=== PATIENT | female | born 1940 | race Caucasian/White ===

== ENCOUNTER → 2016-10-22 | Outpatient (CLI) | payer BC ==
[~2016-10-22] MED LIST: ACET-1325; ALBUAER2 INH; CALC600T9 PO; CHOL100010 PO; CYM/30 PO; EST5 PO; LISI-725 PO; LISI-787 PO; NSNN50 NAE; OFLO0.3S4 OPL; OMEP20CA9 PO; POTA-335 PO; PRED1SUS3; SIMV-151 PO; SYMIN160 PO; VALA1TAB PO
== END | disposition home or self-care (01) ==
LOC: C.MAMM 15:34
PROVIDERS: ATTEND Internal Medicine
DX: M85.88 Other specified disorders of bone density and structure, other site (principal)

== ENCOUNTER → 2016-11-03 | Outpatient (CLI) | payer BC ==
[2016-11-03 19:23] LABS: BASO % 0.2 %; BASO ABS # 0.02 K/uL (0-0.2); COMPLETE YES; EOS % 4.3 %; HEMATOCRIT 37.6 % (37-47); IG% 0.2 %; LYMPH ABS # 1.62 K/uL (1.2-3.4); MEAN CELL VOLUME 90.4 fL (80-100); MEAN CORPUSCULAR HEMOGLOBIN 29.8 pg (25-34); MEAN PLATELET VOLUME 9.2 fL (7.4-10.4); MONO % 8.8 %; NEUT % 67.5 %; PLATELET COUNT 291 K/uL (130-400); RED BLOOD COUNT 4.16 M/uL (4.2-5.4); WHITE BLOOD COUNT 8.53 K/uL (4.8-10.8)
[2016-11-03 19:41] LABS: BLOOD UREA NITROGEN 24 mg/dl (7-18); CREATININE 0.91 mg/dl (0.60-1.20); GLUCOSE 102 mg/dl (70-99)
[2016-11-03 19:42] LABS: ALT/SGPT 21 U/L (12-78); BUN/CREATININE RATIO 26.6 (10-20); CALCIUM 9.8 mg/dl (8.5-10.1); CARBON DIOXIDE 30 mmol/L (21-32); CHLORIDE 104 mmol/L (98-107); CHOLESTEROL 190 mg/dl (0-200); POTASSIUM 4.3 mmol/L (3.5-5.1); SODIUM 140 mmol/L (136-145)
[2016-11-03 19:52] LABS: ALB/GLOB RATIO 0.9 (0.9-2); ALKALINE PHOSPHATASE 114 U/L (45-117); AST/SGOT 16 U/L (15-37); CHOLESTEROL/HDL RATIO 2.6; FERRITIN 28.8 ng/ml (8.0-388.0); HDL CHOLESTEROL 73 mg/dl; LDL CHOLESTEROL CALCULATED 93 mg/dl; TRIGLYCERIDES 122 mg/dl (0-150); VERY LOW DENSITY LIPOPROT CALC 24 mg/dl
== END | disposition home or self-care (01) ==
LOC: C.LAB 18:41
PROVIDERS: ATTEND Internal Medicine
DX: G25.81 Restless legs syndrome (principal)

== ENCOUNTER → 2017-02-04 | Outpatient (CLI) | payer BC ==
--- NOTE | 2017-02-05 07:59 | MAMMOGRAPHY REPORT ---
BILATERAL DIGITAL SCREENING MAMMOGRAM WITH CAD: 02/04/2017 CLINICAL HISTORY: Routine screening. Patient has no complaints. TECHNIQUE: Current study was also evaluated with a Computer Aided Detection (CAD) system. Bilateral CC and MLO views were obtained. COMPARISON: Comparison is made to exams dated: 07/17/2015 mammogram, 03/26/2014 mammogram, 03/24/2013 ma mmogram, 03/09/2012 mammogram, 02/26/2011 mammogram, and 02/20/2010 mammogram - [facility] ter. BREAST COMPOSITION: There are scattered areas of fibroglandular density in both breasts. FINDINGS: No suspicious masses, calcifications, or areas of architectural distortion are noted in ei ther breast. There has been no significant interval change compared to prior exams. IMPRESSION: ACR BI-RADS CATEGORY 1: NEGATIVE There is no mammographic evidence of malignancy. A 1 year screening mammogram is recommended. The pa tient will receive written notification of the results. Approximately 10% of breast cancers are not detected with mammography. A negative mammographic report should not delay biopsy if a clinically suggestive mass is present. Brenna Dunbar M.D. /:02/04/2017 15:46:56 Farm Equipment Engine Mechanic: Janee Adams, [facility] letter sent: Normal 1/2 BI-RADS Code: ACR BI-RADS Category 1: Negative
== END | disposition home or self-care (01) ==
LOC: C.MAMM 15:19
PROVIDERS: ATTEND Obstetrics & Gynecology
DX: Z12.31 Encounter for screening mammogram for malignant neoplasm of breast (principal)

== ENCOUNTER → 2017-05-12 | Outpatient (CLI) | payer BC ==
[2017-05-12 13:15] LABS: BASO % 0.6 %; BASO ABS # 0.04 K/uL (0-0.2); COMPLETE YES; EOS % 4.5 %; HEMATOCRIT 40.5 % (37-47); IG% 0.3 %; LYMPH % 17.5 %; LYMPH ABS # 1.24 K/uL (1.2-3.4); MEAN CELL VOLUME 91.2 fL (80-100); MEAN CORPUSCULAR HEMOGLOBIN 29.5 pg (25-34); MEAN CORPUSCULAR HGB CONC 32.3 g/dl (32-36); MEAN PLATELET VOLUME 9.2 fL (7.4-10.4); MONO % 7.1 %; PLATELET COUNT 303 K/uL (130-400); RED BLOOD COUNT 4.44 M/uL (4.2-5.4); WHITE BLOOD COUNT 7.09 K/uL (4.8-10.8)
[2017-05-12 13:50] LABS: BLOOD UREA NITROGEN 20 mg/dl (7-18); BUN/CREATININE RATIO 30.2 (10-20); CALCIUM 9.1 mg/dl (8.5-10.1); CARBON DIOXIDE 30 mmol/L (21-32); CHLORIDE 105 mmol/L (98-107); CREATININE 0.66 mg/dl (0.60-1.20); GLUCOSE 103 mg/dl (70-99); POTASSIUM 4.1 mmol/L (3.5-5.1); SODIUM 141 mmol/L (136-145)
[2017-05-12 14:01] LABS: CHOLESTEROL 189 mg/dl (0-200); CHOLESTEROL/HDL RATIO 2.4; FERRITIN 26.1 ng/ml (8.0-388.0); HDL CHOLESTEROL 80 mg/dl; LDL CHOLESTEROL CALCULATED 91 mg/dl; TRIGLYCERIDES 89 mg/dl (0-150); VERY LOW DENSITY LIPOPROT CALC 18 mg/dl
== END | disposition home or self-care (01) ==
LOC: C.LAB 11:45
PROVIDERS: ATTEND Internal Medicine
DX: Z00.00 Encounter for general adult medical examination without abnormal findings (principal); I10 Essential (primary) hypertension; E78.5 Hyperlipidemia, unspecified; E61.8 Deficiency of other specified nutrient elements

== ENCOUNTER → 2017-11-10 | Outpatient (CLI) | payer BC ==
[2017-11-10 16:48] LABS: HEMOGLOBIN A1C 5.8 % (4.5-5.6)
[2017-11-10 17:21] LABS: ALBUMIN 3.7 gm/dl (3.4-5.0); ALT/SGPT 14 U/L (12-78); AST/SGOT 13 U/L (15-37); BLOOD UREA NITROGEN 26 mg/dl (7-18); CARBON DIOXIDE 32 mmol/L (21-32); CREATININE 0.74 mg/dl (0.60-1.20); GLUCOSE 99 mg/dl (70-99); POTASSIUM 3.7 mmol/L (3.5-5.1); SODIUM 135 mmol/L (136-145)
[2017-11-10 17:23] LABS: ALKALINE PHOSPHATASE 109 U/L (45-117); CHOLESTEROL 203 mg/dl (0-200); LDL CHOLESTEROL CALCULATED 105 mg/dl
[2017-11-10 17:30] LABS: CALCIUM 10.1 mg/dl (8.5-10.1)
== END | disposition home or self-care (01) ==
LOC: C.LAB 16:11
PROVIDERS: ATTEND Internal Medicine
DX: I10 Essential (primary) hypertension (principal); R73.03 Prediabetes; E78.5 Hyperlipidemia, unspecified

== ENCOUNTER → 2017-11-24 | Outpatient (CLI) | payer BC | END | disposition home or self-care (01) | LOC: C.LABBC 12:14 | PROVIDERS: ATTEND Internal Medicine | DX: E55.9 Vitamin D deficiency, unspecified (principal) ==

== ENCOUNTER → 2017-12-24 | Outpatient (CLI) | payer BC ==
[~2017-12-24] MED LIST changes: -ACET-1325; -ALBUAER2 INH; +ATROPINE SULFATE 0.1 MG/ML 5ML SYR ONE; +CHOL1000 PO; -CHOL100010 PO; +CLR10 PO; -CYM/30 PO; +DOBUTamine HCL 12.5 MG/ML 20 ML VIAL ONE; +FLUO20CA35 PO; -LISI-725 PO; +METOPROLOL TARTRATE 1 MG/ML VIAL ONE; -NSNN50 NAE; -OFLO0.3S4 OPL; +PERFLUTREN LIPID MICROSPHERE (DEFINITY) IV ONE; -POTA-335 PO; +POTA10CA28 PO; -PRED1SUS3; +SLWMEC PO; -SYMIN160 PO; -VALA1TAB PO; +VALA500T60 PO
--- NOTE | 2017-12-24 13:21 | DOBUTAMINE ECHO ---
*NOTICE TO RECEIVING REPUBLICAN AGENCY This information is strictly Confidential and protected under [place] law. [place] law prohibits you from making any further disclosure of this information unless further disclosure is expressly permitted by the written consent of the person to whom it pertains or is authorized by law. A general authorization for the release of medical or other information is not sufficient for this purpose. Hospital accepts no responsibility if the information is made available to any other person, INCLUDING THE PATIENT. Interpretation Summary * Name: ADAMA CARCAMO Study Date: 12/24/2017 10:11 AM BP: 164/90 mmHg * Patient Location: [facility] HR: 67 * : 1940 (M/d/yyyy) Gender: Female Height: 50 in * Age: 77 yrs Ethnicity: CA Weight: 192 lb * Ordering Physician: Brisa Reyes * Referring Physician: Brisa Reyes * Performed By: Oralia Jolly RDCS * * Reason For Study: Pre Operative, Abnormal EKG * BSA: 1.6 m2 * -- Conclusions -- * Left ventricular systolic function is normal. * Grade I diastolic dysfunction, (abnormal relaxation pattern). * There is significant calcification of the posterior mitral annulus * Normal dobutamine echocardiogram without evidence of inducible ischemia. Procedure Details * DOBUTAMINE ECHO, CPT#94053 * ECHO COLOR FLOW, CPT #39234 * ECHO DOPPLER, CPT #[id number] * A contrast injection of Definity was performed to improve assessment of LV function. * Contrast was injected into an intravenous site in the left arm. * One vial of Definity ultrasound contrast was diluted in normal saline to a total volume of 10 ml. A total of '5' ml of solution was administered during imaging. * Lot # [id number] of Definity utilized for procedure. * Expiration date 1APR19. * The attending nurse who injected the contrast agent was Judy Ramos RN. Left Ventricular Findings with Stress * Normal dobutamine echocardiogram without evidence of inducible ischemia. Left Ventricle * The left ventricle is normal in size. * There is normal left ventricular wall thickness. * Ejection Fraction = 60-65%. * Left ventricular systolic function is normal. * Grade I diastolic dysfunction, (abnormal relaxation pattern). * The left ventricular wall motion is normal at rest. Right Ventricle * The right ventricle is normal in size and function. Atria * The left atrial size is normal. * Right atrial size is normal. Mitral Valve * There is significant calcification of the posterior mitral annulus * Significant mitral regurgitation is absent. Tricuspid Valve * The tricuspid valve is not well visualized, but is grossly normal. * Significant tricuspid regurgitation is absent. Aortic Valve * The aortic valve is normal in structure and function. * No hemodynamically significant valvular aortic stenosis. * There is no significant aortic regurgitation. Pulmonic Valve * The pulmonic valve is not well visualized. Great Vessels * The aortic root is normal size. Pericardium * There is no pericardial effusion. Stress Parameters * Normal sinus rhythm with incomplete right bundle branch block. Poor R-wave progression in precordial leads * Stress ECG: No ST changes. No arrhythmias. * Rest heart rate was '67' BPM. * Rest blood pressure was '164/90' * Maximum heart rate achieved was 133 bpm. * Maximum heart rate was 91 % of maximum age-predicted heart rate. * Maximum blood pressure was '174/86' * Maximum Dobutamine infusion rate was '40' mcg/kg/min. * Dobutamine infusion was terminated due to achieving target heart rate * A total of 5 mg of IV Metoprolol was administered to reverse Dobutamine-induced tachycardia. * The patient did not exhibit any symptoms during drug infusion. Left Ventricular Findings with Stress * Baseline EKG was normal There are no significant ST or T-wave changes during dobutamine infusion Baseline echocardiogram was normal There was good augmentation of all segments without development of wall motion abnormalities at peak dobutamine infusion There was normal hemodynamic response to dobutamine and atropine MMode 2D Measurements and Calculations IVSd 1.0 cm IVSs 1.4 cm LVIDd 4.6 cm LVIDs 2.2 cm LVPWd 1.0 cm LVPWs 1.6 cm IVS/LVPW 0.98 FS 52.0 % EDV(Teich) 98.6 ml ESV(Teich) 16.5 ml EF(Teich) 83.2 % EDV(cubed) 99.0 ml ESV(cubed) 10.9 ml EF(cubed) 89.0 % % IVS thick 40.0 % % LVPW thick 55.4 % LV mass(C)d 163.1 grams LV mass(C)dI 101.4 grams/m\S\2 LV mass(C)s 109.3 grams LV mass(C)sI 68.0 grams/m\S\2 SV(Teich) 82.1 ml SI(Teich) 51.1 ml/m\S\2 SV(cubed) 88.1 ml SI(cubed) 54.8 ml/m\S\2 Ao root diam 2.5 cm Ao root area 4.8 cm\S\2 ACS 1.8 cm LA dimension 3.4 cm LA/Ao 1.4 LVAd ap4 23.0 cm\S\2 LVLd ap4 6.7 cm EDV(MOD-sp4) 68.1 ml EDV(sp4-el) 67.1 ml LVAs ap4 14.3 cm\S\2 LVLs ap4 6.4 cm ESV(MOD-sp4) 28.9 ml ESV(sp4-el) 26.9 ml EF(MOD-sp4) 57.5 % EF(sp4-el) 59.9 % LVAd ap2 21.8 cm\S\2 LVLd ap2 6.8 cm EDV(MOD-sp2) 59.6 ml EDV(sp2-el) 59.9 ml LVAs ap2 11.0 cm\S\2 LVLs ap2 5.7 cm ESV(MOD-sp2) 18.5 ml ESV(sp2-el) 18.3 ml EF(MOD-sp2) 69.0 % EF(sp2-el) 69.5 % LVLd %diff 0.87 % EDV(MOD-bp) 64.9 ml LVLs %diff -13.50 % ESV(MOD-bp) 24.0 ml EF(MOD-bp) 63.0 % SV(MOD-sp4) 39.2 ml SI(MOD-sp4) 24.4 ml/m\S\2 SV(MOD-sp2) 41.1 ml SI(MOD-sp2) 25.6 ml/m\S\2 SV(MOD-bp) 40.9 ml SI(MOD-bp) 25.5 ml/m\S\2 SV(sp4-el) 40.2 ml SI(sp4-el) 25.0 ml/m\S\2 SV(sp2-el) 41.6 ml SI(sp2-el) 25.9 ml/m\S\2 Doppler Measurements and Calculations MV E max joshua 106.7 cm/sec MV A max joshua 120.8 cm/sec MV E/A 0.88 MV dec time 0.24 sec Ao V2 max 145.2 cm/sec Ao max PG 8.4 mmHg Ao max PG (full) 5.7 mmHg LV V1 max PG 2.8 mmHg LV V1 max 83.4 cm/sec PA V2 max 104.5 cm/sec PA max PG 4.4 mmHg
== END | disposition home or self-care (01) ==
LOC: C.CPL 09:15
PROVIDERS: ATTEND Physician Assistant Medical
DX: R94.31 Abnormal electrocardiogram [ECG] [EKG] (principal)

== ENCOUNTER 2017-12-28 08:46 | Inpatient (IN) | payer BC, OTHER ==
--- NOTE | 2017-12-03 09:24 | HISTORY & PHYSICAL EXAMINATION ---
DATE OF ADMISSION: 12/03/2017 CHIEF COMPLAINT: Left knee pain. HISTORY OF PRESENT ILLNESS: Bernard is a 76-year-old female with a multiple year history of left knee pain. The patient rates her pain a 9/10. She has pain with her daily activities. She has limited standing and walking tolerance. Pain is worse with weightbearing. The patient has had injections and NSAIDS over the years without relief. She has failed conservative treatment and is scheduled for left knee replacement. PAST MEDICAL HISTORY: Hypertension, hypercholesterolemia, asthma, anxiety. She denies heart disease, diabetes or DVT. PAST SURGICAL HISTORY: Partial hysterectomy and sinuplasty. SOCIAL HISTORY: The patient denies alcohol or tobacco use. She lives in a single story home. She is . She lives alone. She retired in 2003. FAMILY HISTORY: Negative for DVT. MEDICATIONS: Celebrex 200 mg daily, lisinopril 40 mg daily, omeprazole 20 mg daily, simvastatin 20 mg daily, Lexapro 10 mg daily, estradiol 0.5 mg. ALLERGIES: IV IRON. REVIEW OF SYSTEMS: See HPI. Ten other systems reviewed, all negative. PHYSICAL EXAMINATION: VITAL SIGNS: Height 4 feet 10, weight 193, BMI 40. GENERAL: This is a well-developed, well-nourished female who is alert and oriented x3. Mood and affect are appropriate. HEENT: Normocephalic, atraumatic. Mucous membranes are moist and intact. NECK: Supple without lymphadenopathy. HEART: Regular rate and rhythm without murmurs, rubs or gallops. LUNGS: Clear to auscultation without wheezes or rhonchi. ABDOMEN: Soft and nontender. Bowel sounds are equal and active. EXTREMITIES: No ecchymosis, redness or warmth. She has valgus deformity. Range of motion is from 3-115 degrees. She is with no laxity. She has mild effusion and mild distal edema. She is neurovascularly intact with +5/5 strength. X-RAY EXAMINATION: AP and lateral views show joint space narrowing and osteophyte formation. IMPRESSION: Degenerative joint disease, left knee. PLAN: The patient will be admitted for a left total knee arthroplasty. We will plan on aspirin for DVT prophylaxis. The patient is requesting a short stay at [facility] upon discharge. Her PCP is Dr. Gavin.
[2017-12-07 14:02] VITALS: Ht 149.9 cm; Wt 87.4 kg
--- NOTE | 2017-12-07 14:29 | PAT Medication Instructions ---
Service Date Dec 07, 2017. Current Home Medication List Calcium Carbonate-Vitamin D (Calcium + D), 1 TAB PO BID Cholecalciferol (Vitamin D3), 1 TAB PO QAM Estradiol (Estradiol), 0.5 MG PO QPM Fluoxetine (Prozac), 30 MG PO QAM Lisinopril/Hctz (Zestoretic 20MG/12.5MG), 1 TAB PO QAM Loratadine (Claritin), 10 MG PO QAM Magnesium Chloride (Slow-Mag Tab), 2 MG PO HS Omeprazole (Prilosec), 20 MG PO BEFORE LUNCH Potassium Chloride (Micro-K Ext Rel), 20 MEQ PO QAM Simvastatin (Simvastatin), 20 MG PO HS Valacyclovir (Valtrex), 500 MG PO BID PRN for PRN Medication Instructions For Your Scheduled Surgery - Hold the following medications the morning of surgery: Calcium Carbonate-Vitamin D (Calcium + D), 1 TAB PO BID Cholecalciferol (Vitamin D3), 1 TAB PO QAM Lisinopril/Hctz (Zestoretic 20MG/12.5MG), 1 TAB PO QAM Loratadine (Claritin), 10 MG PO QAM Potassium Chloride (Micro-K Ext Rel), 20 MEQ PO QAM - Take the following medications the morning of surgery with a sip of water: Fluoxetine (Prozac), 30 MG PO QAM Valacyclovir (Valtrex), 500 MG PO BID PRN for PRN (if needed) - Take the following medications as scheduled the night before surgery: Calcium Carbonate-Vitamin D (Calcium + D), 1 TAB PO BID Estradiol (Estradiol), 0.5 MG PO QPM Magnesium Chloride (Slow-Mag Tab), 2 MG PO HS Omeprazole (Prilosec), 20 MG PO BEFORE LUNCH Simvastatin (Simvastatin), 20 MG PO HS Valacyclovir (Valtrex), 500 MG PO BID PRN for PRN (if needed) If you have any questions please call us at [phone] or [phone] or [phone]
[2017-12-07 14:56] LABS: BASO % 0.6 %; BASO ABS # 0.04 K/uL (0-0.2); EOS % 3.1 %; EOS ABS # 0.21 K/uL (0-0.5); HEMATOCRIT 39.4 % (37-47); HEMOGLOBIN 12.8 g/dL (12.0-16.0); IG# 0.02 K/uL (0.00-0.02); LYMPH % 20.2 %; LYMPH ABS # 1.36 K/uL (1.2-3.4); MEAN CELL VOLUME 90.6 fL (80-100); MEAN CORPUSCULAR HEMOGLOBIN 29.4 pg (25-34); MEAN CORPUSCULAR HGB CONC 32.5 g/dl (32-36); MONO % 6.4 %; MONO ABS # 0.43 K/uL (0.11-0.59); NEUT % 69.4 %; NEUT ABS # 4.67 K/uL (1.4-6.5); PLATELET COUNT 284 K/uL (130-400); RED CELL DISTRIBUTION WIDTH CV 13.4 % (11.5-14.5); RED CELL DISTRIBUTION WIDTH SD 44.7 fL (36.4-46.3); WHITE BLOOD COUNT 6.73 K/uL (4.8-10.8)
[2017-12-07 15:05] LABS: PTT PATIENT 22.9 SECONDS (21.0-31.0)
--- NOTE | 2017-12-07 15:35 | DIAGNOSTIC IMAGING REPORT ---
CHEST 2 VIEWS ROUTINE CLINICAL HISTORY: Preoperative evaluation. COMPARISON STUDY: No previous studies for comparison. FINDINGS: Lung volumes are normal. No pneumothorax or pleural effusion is noted. There is no consolidation or evidence for pulmonary edema. There is mild to moderate cardiomegaly. Linear bibasilar opacities are suggestive of atelectasis. IMPRESSION: 1. No acute cardiopulmonary findings. 2. Mild to moderate cardiomegaly. Electronically signed by: Jose Moscoso M.D. 12/07/2017 3:34 PM Dictated Date/Time: 12/07/2017 3:33 PM
[~2017-12-28] VITALS: Ht 149.9 cm; Wt 87.4 kg
[2017-12-28] VITALS (10 sets, daily range): BP systolic 109–184; BP diastolic 68–102; PULSE 58–93; TEMP 36.2–36.9; O2SAT 93–99
[2017-12-28] MEDS: TRANEXAMIC ACID INJ 1,000 MG x 2 Bags IV SCH ×4 (06:30→11:20)
[~2017-12-28 08:46] MED LIST changes: +ACETAMINOPHEN 500 MG TAB PO SCH; -ATROPINE SULFATE 0.1 MG/ML 5ML SYR ONE; +CEFAZOLIN 2000MG IV PUSH 15 ML IV SCH; +CeleBREX 200 MG CAP PO SCH; +DEXAMETHASONE 4 MG TAB PO SCH; -DOBUTamine HCL 12.5 MG/ML 20 ML VIAL ONE; +FAMOTIDINE 20 MG TAB PO SCH; +FENTANYL CITRATE INJ 50 MCG/1 ML 2 ML VIAL ONE; +GABAPENTIN 300 MG CAP PO SCH; +LACTATED RINGER'S 1000ML 1,000 ML IV SCH; +LACTATED RINGER'S 1000ML 500 ML IV SCH; +METOCLOPRAMIDE HCL 10 MG TAB PO SCH; -METOPROLOL TARTRATE 1 MG/ML VIAL ONE; +MIDAZOLAM HCL 1 MG/ML 2ML VIAL ONE; -PERFLUTREN LIPID MICROSPHERE (DEFINITY) IV ONE; +ROPIVACAINE 5MG/ML 30 ML 150 MG, BUPIVACAINE 0.5% MPF INJ 30 ML, EpINEphrine HCL INJ 0.... INFIL SCH
[2017-12-28] MEDS ORDERED: LMS250 (09:34)
--- NOTE | 2017-12-28 10:17 | History & Physical Bridge Note ---
H&P Re-Evaluation Bridge Note: I have examined the patient, reviewed the History & Physical and in the interval since the performance of the History & Physical I have noted the following changes of clinical significance: No changes noted
[2017-12-28] MEDS ORDERED: POVIDONE-IODINE OP SOLN 30 ML BTL ONE (11:19)
[2017-12-28] MEDS ORDERED: ORTHO JOINT ANESTHETIC ONE (11:19)
[2017-12-28] MEDS ORDERED: BACITRACIN 50000 UNIT VIAL ONE (11:19)
[2017-12-28] MEDS ORDERED: MIDAZOLAM HCL 1 MG/ML 2ML VIAL ONE (12:00)
[2017-12-28] MEDS ORDERED: LIDOCAINE HCL 2% 2 ML VIAL (20MG/ML) ONE (12:09)
[2017-12-28] MEDS ORDERED: PROPOFOL IV EMULSION 10 MG/ML 20 ML VIAL ONE (12:09)
[2017-12-28] MEDS ORDERED: ONDANSETRON INJ 2 MG/ML 2 ML VIAL ONE (12:09)
--- NOTE | 2017-12-28 12:37 | [facility] Post Operative Brief Note ---
Immediate Operative Summary Operative Date December 28, 2017. Pre-Operative Diagnosis Degenerative Joint Disease Left Knee Post-Operative Diagnosis Degenerative Joint Disease Left KNee Procedure(s) Performed Left Total Knee Arthroplasty utilizing MEPS Real-Time journey to patient match total knee arthroplasty size 2 femur to tibia 11 Tricia ethylene 29 round patella Surgeon Senior Technical Specialist Surgeon(s) JAYCEE Rosales Estimated Blood Loss 5ML Findings Consistent with Post-Op Diagnosis Specimens A. Left Knee Bone And Tissue. Anesthesia Type MAC Spinal Regional Complication(s) none Disposition Disposition: Recovery Room / PACU Overlapping Procedure I was present for: the critical portions of procedure. I was immediately available: during the entire case Back up surgeon: was not required during procedure
--- NOTE | 2017-12-28 12:39 | [facility] Operative Report ---
Operative Report Operative Date December 28, 2017. Pre-Operative Diagnosis Degenerative Joint Disease Left Knee Post-Operative Diagnosis Degenerative Joint Disease Left KNee Procedure(s) Performed Left Total Knee Arthroplasty utilizing Ruangguru journey to patient match total knee arthroplasty size 2 femur to tibia 11 Tricia ethylene 29 round patella Surgeon Auto Brake Technician Surgeon(s) JAYCEE Rosales Estimated Blood Loss 5ML Findings Patient presents with severe end-stage tricompartmental degenerative joint disease varus time surgery consisted of subchondral sclerosis osteophytes marginal osteophytes eburnated bone on bone with bone complete exposure medial compartment and patellofemoral pseudo-ligamentous laxity due to meniscal articular cartilage and bone loss Specimens A. Left Knee Bone And Tissue. Anesthesia Type MAC Spinal Regional Complication(s) none Disposition Recovery Room / PACU Indications Patient returns after failing attempts at conservative management including physical therapy anti-inflammatories relative rest activity modification corticosteroid injections Visco supplementation bracing patient failed times conservative management presents for left total knee arthroplasty Description of Procedure After proper prepping and draping of the left lower extremity anterior midline incision was made over the region of the extensor extensor mechanism after meticulous hemostasis was obtained and maintained in subcutaneous tissues a medial parapatellar incision was made The patella was subluxed lateralward the medial lateral gutter were cleaned from any hypertrophic synovitis and scar tissue of the distal femoral block was placed and the distal femoral osteotomy cut was made subsequently the chamfers anterior and posterior osteotomy cuts were made utilizing the 4-in-1 block the tibia was subsequently subluxed anteriorward medial and ateral meniscal remnants were excised in their entirety remnants of the anterior and posterior cruciate ligaments were excised in their entirety excellent exposure of the proximal tibia was obtained the tibial osteotomy guide was placed on the proximal tibial osteotomy cut was made once again the knee was irrigated with copious amounts of sterile saline solution the patella was subsequently everted lateralward thickened scar tissue around the patella was removed the patella was subsequently cut utilizing a freehand technique and was drilled prepared for final preparation and placement of patella socially flexion-extension gaps were checked and the equal and symmetric trials were placed to the appropriate femoral and tibial trials with poly-spacer being placed for equal flexion and extension gaps and full range of motion including extension to 0 and flexion to 140 the trial components after having been taken to recovery range of motion was subsequently removed meticulous hemostasis was obtained and maintained subsequently a knee block injection of joint cocktail including ropivacaine 0.5% 150 mg. Bupivacaine 0.5 % epinephrine 1-200,030 mL's toradol 30 mg dexamethasone 4 mg ketamine 10 mg clonidine 100 micrograms normal saline solution 30 mg was infiltrated into the soft tissues of the posterior knee medial lateral gutters and periosteal synovium special attention was paid to protect neurovascular structures at all times subsequently trial components having been removed the knee was irrigated with sterile saline solution. debris was removed the proximal tibia was subsequently prepared and was made ready for the placement of the tibial component tibial component was also cemented and tamped into position the femoral component was subsequently placed and cemented in the position the patellar component was subsequently cemented in position because hemostasis once again obtained and maintained wound having been thoroughly irrigated with debridement and debridement lavage was performed as well as a medial parapatellar incision closed with #1 Vicryl in interrupted fashion subcutaneous was closed with #2 Vicryl skin was closed with skin clips. PA-C was necessary for prepping and drapping as well as wound closure of deep fascia Sub cutaneous tissue and skin and was necessary for the case. A sterile compressive dressing was placed patient was taken to recovery in stable condition of report dictated by Alex I attest to the content of the Intraoperative Record and any orders documented therein. Any exceptions are noted below. I attest to the content of the Intraoperative Record and any orders documented therein. Any exceptions are noted below.
[2017-12-28] MEDS ORDERED: ATROPINE SULFATE 0.1 MG/ML 5ML SYR IV PRN (13:30)
[2017-12-28] MEDS ORDERED: MAGNESIUM HYDROXIDE SUSP 30 ML UDC PO PRN (13:30)
[2017-12-28] MEDS ORDERED: EpHEDrine SULFATE INJ 50 MG/ML AMP IV PRN (13:30)
[2017-12-28] MEDS ORDERED: MoRPHine SULFATE 4 MG/ML 1 ML CARP\\VIAL IV PRN (13:30)
[2017-12-28] MEDS ORDERED: ALUMINUM/MAGNESIUM/SIMETH (MAALOX MAX) 30 ML UDC PO PRN (13:30)
[2017-12-28] MEDS ORDERED: BISACODYL 10 MG SUPP PR PRN (13:30)
[2017-12-28] MEDS ORDERED: ONDANSETRON INJ 2 MG/ML 2 ML VIAL IV PRN (13:30)
--- NOTE | 2017-12-28 13:47 | DIAGNOSTIC IMAGING REPORT ---
TWO VIEWS LEFT KNEE CLINICAL HISTORY: Postoperative examination. FINDINGS: AP and crosstable lateral portable views of the left knee are obtained. A left knee arthroplasty is in near anatomic alignment. There has been undersurface remodeling of the patella. No acute fracture is seen. There are expected postoperative changes around the knee including skin clips, a surgical drain, soft tissue edema, and subcutaneous gas. IMPRESSION: Expected postoperative changes status post left knee arthroplasty. No acute fracture is seen. Electronically signed by: Tobias Gifford M.D. 12/28/2017 1:46 PM Dictated Date/Time: 12/28/2017 1:45 PM
--- NOTE | 2017-12-28 14:45 | Anesthesiology Progress Note ---
Anesthesia Post Op Note Date & Time December 28, 2017 at 14:45 Vital Signs Pain Intensity: 0 Vital Signs Past 12 Hours Date Time Temp Pulse Resp B/P (MAP) Pulse Ox O2 Delivery O2 Flow Rate FiO2 12/28/17 14:40 36.2 60 16 121/66 98 Nasal Cannula 2 12/28/17 14:30 36.2 63 16 144/65 96 Nasal Cannula 2 12/28/17 14:20 60 16 141/71 95 Nasal Cannula 2 12/28/17 14:10 70 16 137/68 97 Nasal Cannula 2 12/28/17 14:00 58 16 147/68 97 Nasal Cannula 2 12/28/17 13:50 78 16 132/68 98 Nasal Cannula 2 12/28/17 13:40 76 16 139/68 100 Oxymask 10 12/28/17 13:30 75 16 133/66 100 Oxymask 10 12/28/17 13:22 36.5 78 16 117/64 100 Oxymask 10 12/28/17 09:42 36.8 93 18 144/72 95 Room Air Notes Mental Status: alert / awake / arousable, participated in evaluation Pt Amnestic to Procedure: Yes Nausea / Vomiting: adequately controlled Pain: adequately controlled Airway Patency, RR, SpO2: stable & adequate BP & HR: stable & adequate Hydration State: stable & adequate Anesthetic Complications: no major complications apparent
[2017-12-28] MEDS: D5W AND 1/2NSS + 20MEQ KCL 1,000 ML IV SCH (16:11)
[2017-12-28] MEDS ORDERED: HydrALAZINE HCL 20 MG/ML VIAL IV. PRN (16:30)
--- NOTE | 2017-12-28 16:46 | Medical Consult ---
Consultation Date of Consultation: December 28, 2017. Attending Physician: Rodolfo Johnson D.O. Reason for Consultation: Medical management History of Present Illness Patient is 77 y/o female, with PMHx of HTN, HLD, asthma, anxiety, and GERD, s/p L TKA by Dr. Johnson on 12/28. Hospitalist team was consulted for medical management. Patient resting in bed. Will open eyes but quickly falls back to sleep. Does not appear to be in any acute distress. ROS not obtained secondary to drowsiness. O2 sats are currently >92%. Vitals are stable. 5ML blood loss during procedure noted. Discussed lethargy w/ RN- was in recovery awhile due to sedation. Was up briefly when brought to the floor and talked w/ family. Will be doing frequent checks/vitals. Past Medical/Surgical History PAST MEDICAL HISTORY: Hypertension hypercholesterolemia asthma anxiety GERD PAST SURGICAL HISTORY: Partial hysterectomy sinuplasty Family History No significant family history Social History Smoking Status: Never Smoker Housing Status: lives alone Occupation Status: retired Allergies Coded Allergies: Benzonatate (Verified Allergy, Unknown, HIVES, 12/28/17) Cyclobenzaprine (Verified Allergy, Unknown, PT UNSURE OF RXN, 12/28/17) Metoclopramide (Verified Allergy, Unknown, PT UNSURE OF RXN, 12/28/17) Diphenhydramine (Verified Adverse Reaction, Intermediate, restless leg, ) Iron (Verified Adverse Reaction, Intermediate, rash, 12/28/17) Promethazine (Verified Adverse Reaction, Intermediate, restless legs, 12/28) Home Medications Reported Home Medications Medications Dose Route/Sig Max Daily Dose Days Date Category Terbinafine HCl (Terbinafine) 250 Mg Tab 1 Tab DAILY 12/28/17 Reported Vitamin D3 (Cholecalciferol) 1,000 Unit Tab 1 Tab PO QAM 90 12/07/17 Reported Valtrex (Valacyclovir HCl) 500 Mg Tab 500 Mg PO BID PRN 12/07/17 Reported Slow-Mag Tab (Magnesium Chloride) 64 Mg Tabcr 2 Mg PO HS 12/07/17 Reported Micro-K Ext Rel (Potassium Chloride) 10 Meq Capcr 20 Meq PO QAM 12/07/17 Reported Zestoretic 20MG/12.5MG (HCTZ/Lisinopril) Tab 1 Tab PO QAM 12/07/17 Reported Prozac (Fluoxetine HCl) 20 Mg Cap 30 Mg PO QAM 12/07/17 Reported Claritin (Loratadine) 10 Mg Tab 10 Mg PO QAM 12/07/17 Reported Calcium + D (Calcium Carbonate-Vitamin D) 1 Tab Tab 1 Tab PO BID 12/05/14 Reported Estradiol 0.5 Mg Tab 0.5 Mg PO QPM 12/05/14 Reported Prilosec (Omeprazole) 20 Mg Cap 20 Mg PO BEFORE LUNCH 12/05/14 Reported Simvastatin 20 Mg Tab 20 Mg PO HS 12/05/14 Reported Current Inpatient Medications Current Inpatient Medications Medications (Trade) Dose Ordered Sig/Pawan Route Start Time Stop Time Status Last Admin Dose Admin Lactated Ringer's 1,000 ml @ 15 mls/hr Q24H IV 12/28/17 06:00 12/29/17 05:59 Cefazolin Sodium 15 ml @ 3.75 mls/ min PREOP IV 12/28/17 06:00 12/28/17 18:00 12/28/17 11:43 3.75 MLS/MIN Acetaminophen (Tylenol Tab) 1,000 mg PREOP PO 12/28/17 06:00 12/28/17 18:00 12/28/17 10:05 1,000 MG Celecoxib (CeleBREX CAP) 200 mg PREOP PO 12/28/17 06:00 12/28/17 18:00 12/28/17 10:05 200 MG Dexamethasone (Decadron Tab) 8 mg PREOP PO 12/28/17 06:00 12/28/17 18:00 12/28/17 10:05 8 MG Famotidine (Pepcid Tab) 20 mg PREOP PO 12/28/17 06:00 12/28/17 18:00 12/28/17 10:04 20 MG Gabapentin (Neurontin Cap) 300 mg PREOP PO 12/28/17 06:00 12/28/17 18:00 12/28/17 10:04 300 MG Miscellaneous Information (Allergy Noted To Ordered Medication) 1 ea QS N/A 12/28/17 00:00 01/27/18 00:00 Ephedrine Sulfate (EpHEDrine SULFATE INJ) 5 mg Q5M PRN IV 12/28/17 13:30 12/28/17 18:30 Atropine Sulfate (Atropine Sulfate 0.1mg/ml Inj) 0.5 mg Q1M PRN IV 12/28/17 13:30 12/28/17 18:30 Cholecalciferol (Vitamin D Tab) 1,000 inter.unit QAM PO 12/29/17 09:00 01/28/18 08:59 Fluoxetine HCl (Prozac Cap) 30 mg QAM PO 12/29/17 09:00 01/28/18 08:59 HCTZ/Lisinopril (Prinzide 20-12.5MG Tab) 1 tab QAM PO 12/29/17 09:00 01/28/18 08:59 Loratadine (Claritin Tab) 10 mg QAM PO 12/29/17 09:00 01/28/18 08:59 Magnesium Chloride (Slow-Mag Tab) 128 mg HS PO 12/28/17 21:00 01/27/18 20:59 Potassium Chloride (Klor-Con M10) 20 meq QAM PO 12/29/17 09:00 01/28/18 08:59 Simvastatin (Zocor Tab) 20 mg HS PO 12/28/17 21:00 01/27/18 20:59 Miscellaneous Information (Order Awaiting Action) 1 ea QS N/A 12/28/17 16:00 01/27/18 15:59 Pantoprazole Sodium (Protonix Tab) 40 mg DAILY@1100 PO 12/29/17 11:00 01/28/18 10:59 Terbinafine HCl (Terbinafine) 250 mg DAILY PO 12/29/17 09:00 01/28/18 08:59 Morphine Sulfate (MoRPHine SULFATE INJ) 2 mg Q4HWA PRN IV 12/28/17 13:30 01/11/18 13:29 Potassium Chloride/Dextrose/ Sod Cl 1,000 ml @ 100 mls/hr Q10H IV 12/28/17 16:00 12/29/17 15:59 12/28/17 16:11 100 MLS/HR Cefazolin Sodium 2000 mg/Syringe 15 ml @ 3.75 mls/ min Q8H IV 12/28/17 20:00 12/29/17 04:03 Celecoxib (CeleBREX CAP) 200 mg BID PO 12/28/17 21:00 01/27/18 20:59 Oxycodone HCl (Roxicodone Immediate Rel Tab) 1 TABLET FOR PAIN RATING... Q4H PRN PO 12/28/17 13:30 01/11/18 13:29 Acetaminophen (Tylenol Tab) 1,000 mg Q8H PO 12/28/17 22:00 01/27/18 21:59 Magnesium Hydroxide (Milk Of Magnesia Susp) 30 ml Q6H PRN PO 12/28/17 13:30 01/27/18 13:29 Bisacodyl (Dulcolax Supp) 10 mg DAILY PRN MN 12/28/17 13:30 01/27/18 13:29 Senna (Senokot Tab) 17.2 mg HS PO 12/28/17 21:00 01/27/18 20:59 Docusate Sodium (coLACE CAP) 100 mg BID PO 12/28/17 21:00 01/27/18 20:59 Al Hydrox/Mg Hydrox/Simethicone (Maalox Max Susp) 15 ml Q4H PRN PO 12/28/17 13:30 01/27/18 13:29 Ondansetron HCl (Zofran Inj) 4 mg Q6H PRN IV 12/28/17 13:30 01/27/18 13:29 Ferrous Gluconate (Ferrous Gluconate Tab) 324 mg TIDM PO 12/28/17 17:45 01/27/18 17:44 Tramadol HCl (Ultram Tab) 1 tablet for pain rating... Q4H PRN PO 12/28/17 13:30 01/27/18 13:29 Aspirin (Ecotrin Tab) 81 mg BID PO 12/28/17 21:00 01/27/18 20:59 Physical Exam Date Time Temp Pulse Resp B/P (MAP) Pulse Ox O2 Delivery O2 Flow Rate FiO2 12/28/17 15:48 63 18 139/75 (96) 98 Nasal Cannula 2.0 12/28/17 15:10 Nasal Cannula 2.0 12/28/17 15:10 97 Nasal Cannula 2.0 12/28/17 15:10 36.7 64 18 128/76 (93) 97 Nasal Cannula 2.0 12/28/17 14:50 36.2 60 16 130/62 98 Nasal Cannula 2 12/28/17 14:40 36.2 60 16 121/66 98 Nasal Cannula 2 12/28/17 14:30 36.2 63 16 144/65 96 Nasal Cannula 2 12/28/17 14:20 60 16 141/71 95 Nasal Cannula 2 12/28/17 14:10 70 16 137/68 97 Nasal Cannula 2 12/28/17 14:00 58 16 147/68 97 Nasal Cannula 2 12/28/17 13:50 78 16 132/68 98 Nasal Cannula 2 12/28/17 13:40 76 16 139/68 100 Oxymask 10 12/28/17 13:30 75 16 133/66 100 Oxymask 10 12/28/17 13:22 36.5 78 16 117/64 100 Oxymask 10 12/28/17 09:42 36.8 93 18 144/72 95 Room Air General Appearance: no apparent distress, + obese, + pertinent finding (O2 NC ) Head: normocephalic, atraumatic Eyes: normal inspection, PERRL ENT: hearing grossly normal Neck: supple Respiratory/Chest: lungs clear, no respiratory distress, no accessory muscle use, + pertinent finding (loud snoring noted ) Cardiovascular: regular rate, rhythm, + systolic murmur Abdomen/GI: normal bowel sounds, non tender, soft Back: normal inspection Extremities/Musculoskelatal: + pertinent finding (LLE in MAURO bandage/SCDs; RLE in DAIANA/SCD) Neurologic/Psych: + pertinent finding (drowsy) Skin: normal color, warm/dry, no rash Assessment & Plan Patient is 77 y/o female, with PMHx of HTN, HLD, asthma, anxiety, and GERD, s/p L TKA by Dr. Johnson on 12/28. Hospitalist team was consulted for medical management. s/p L TKA by Dr. Johnson on 12/28: - Surgical management, pain management, PT/OT, and DVT prophylaxis as per primary team - Encourage incentive spirometer - Bowel regimen ordered - Follow postop CBC and PRP HTN: - Hold HCTZ/Lisinopril pending PRP/volume assessment tomorrow AM - IV Hydralazine PRN HLD: Continue Simvastatin Anxiety: Continue Prozac ?Underlying sleep apnea w/ obesity/snoring noted: Recommend outpatient sleep study GERD: Protonix daily- resume Prilosec at discharge DVT prophylaxis: ASA BID Code status: LEVEL I, FULL Dispo: As per primary team Resident Physician Supervision Note: I was present with Chrissy Patrick during the history and exam. I discussed the case with the resident and agree with the findings and plan as documented in the note. Any exceptions or clarifications are listed here: 77 y/o F Hx HTN, HLD, asthma, anxiety, and GERD - post L TKA - medical team asked to consult for post-op management. The pt is under the influence of anesthetics at the time of my evaluation and difficult to question as she tends to fall asleep - she did not describe any specific complaints and vital signs have been stable. OE Oriented when awake S1,2 R CTA NT, ND cap refill present in LEs P: HTN - HCTX/MAURO held pending AM labs and assessment HPL - cont Statin Pt likely has PRINCE as she snores loudly when she falls asleep - this can be followed in the outpt setting as she is not desaturating PT/OT to discretion of orthopedics - anticoagulation recommended AM Documented By: Abdiel Duarte
[2017-12-28] MEDS: FERROUS GLUCONATE 324 MG TAB PO SCH (17:45)
[2017-12-28] MEDS: CEFAZOLIN IV 2,000 MG in SYRINGE 0 ML IV SCH (20:27)
[2017-12-28] MEDS: DOCUSATE SODIUM 100 MG CAP PO SCH (20:33)
[2017-12-28] MEDS: MAGNESIUM CHLORIDE 64MG DELAYED REL TAB PO SCH (20:33)
[2017-12-28] MEDS: SENNA 8.6 MG TAB PO SCH (20:34)
[2017-12-28] MEDS: CeleBREX 200 MG CAP PO SCH (20:34)
[2017-12-28] MEDS: SIMVASTATIN 20 MG TAB PO SCH (20:36)
[2017-12-28] MEDS: ASPIRIN 81 MG ECTAB PO SCH (21:16)
[2017-12-28] MEDS: ACETAMINOPHEN 500 MG TAB PO SCH (21:17)
[2017-12-29] MEDS: D5W AND 1/2NSS + 20MEQ KCL 1,000 ML IV SCH ×2 (01:51→10:49)
[2017-12-29] MEDS: CEFAZOLIN IV 2,000 MG in SYRINGE 0 ML IV SCH (04:02)
[2017-12-29 04:10] VITALS: BP 159/78; PULSE 74; TEMP 36.8; O2SAT 93
[2017-12-29] MEDS: ACETAMINOPHEN 500 MG TAB PO SCH ×3 (06:04→21:18)
[2017-12-29 06:14] LABS: HEMATOCRIT 34.8 % (37-47); HEMOGLOBIN 11.3 g/dL (12.0-16.0); MEAN CELL VOLUME 89.7 fL (80-100); MEAN CORPUSCULAR HEMOGLOBIN 29.1 pg (25-34); MEAN CORPUSCULAR HGB CONC 32.5 g/dl (32-36); MEAN PLATELET VOLUME 8.8 fL (7.4-10.4); PLATELET COUNT 256 K/uL (130-400); RED CELL DISTRIBUTION WIDTH CV 13.5 % (11.5-14.5); RED CELL DISTRIBUTION WIDTH SD 44.7 fL (36.4-46.3); WHITE BLOOD COUNT 12.78 K/uL (4.8-10.8)
[2017-12-29 06:55] LABS: CALCIUM 8.7 mg/dl (8.5-10.1); CREATININE 0.99 mg/dl (0.60-1.20); POTASSIUM 3.9 mmol/L (3.5-5.1)
--- NOTE | 2017-12-29 07:39 | Orthopedic Progress Note ---
Orthopedic Progress Note Date of Service December 29, 2017. Subjective Post OP Day: 1 Reports: feeling well, Denies: chest pain, SOB, nausea / vomiting, light headedness, calf pain Additional Notes: Mild pain in the knee this AM but overall her night was very good. Happy with her pain control. Objective calves soft nontender, N/V intact, dressing C/D/I, A&O x3, toes mobile Date Time Temp Pulse Resp B/P (MAP) Pulse Ox O2 Delivery O2 Flow Rate FiO2 12/29/17 04:10 36.8 74 16 159/78 (105) 93 Room Air 12/28/17 23:25 Room Air 12/28/17 23:20 36.9 74 16 109/68 (82) 93 Room Air 12/28/17 20:30 131/77 (95) 12/28/17 19:33 179/102 (127) 12/28/17 19:21 36.2 71 18 184/100 (128) 99 Nasal Cannula 2.0 12/28/17 18:24 65 18 151/74 (99) 98 Nasal Cannula 2.0 12/28/17 17:20 72 18 167/99 (121) 12/28/17 16:29 58 18 145/72 (96) 12/28/17 15:48 63 18 139/75 (96) 98 Nasal Cannula 2.0 12/28/17 15:10 Nasal Cannula 2.0 12/28/17 15:10 97 Nasal Cannula 2.0 12/28/17 15:10 36.7 64 18 128/76 (93) 97 Nasal Cannula 2.0 12/28/17 14:50 36.2 60 16 130/62 98 Nasal Cannula 2 12/28/17 14:40 36.2 60 16 121/66 98 Nasal Cannula 2 12/28/17 14:30 36.2 63 16 144/65 96 Nasal Cannula 2 12/28/17 14:20 60 16 141/71 95 Nasal Cannula 2 12/28/17 14:10 70 16 137/68 97 Nasal Cannula 2 12/28/17 14:00 58 16 147/68 97 Nasal Cannula 2 12/28/17 13:50 78 16 132/68 98 Nasal Cannula 2 12/28/17 13:40 76 16 139/68 100 Oxymask 10 12/28/17 13:30 75 16 133/66 100 Oxymask 10 12/28/17 13:22 36.5 78 16 117/64 100 Oxymask 10 12/28/17 09:42 36.8 93 18 144/72 95 Room Air Laboratory Results 24 Hours: Test 12/29/17 05:48 Hematocrit 34.8 % Hemoglobin 11.3 g/dL Assessment & Plan Assessment: POD 1 s/p Left TKA Plan: PT/OT Planning for [facility] if approved. CM to arrange auth. Inhouse Planning Pain Management: Celebrex, Morphine, PO Tylenol, Oxy IR DVT Prophylaxis: TEDs, SCDs, ASA Discharge Planning Discharge Planning: rehab hospital
--- NOTE | 2017-12-29 07:46 | Anesthesiology Progress Note ---
Anesthesia Post Op Note Date & Time December 29, 2017 at 07:45 Vital Signs Pain Intensity: 0.0 Vital Signs Past 12 Hours Date Time Temp Pulse Resp B/P (MAP) Pulse Ox O2 Delivery O2 Flow Rate FiO2 12/29/17 04:10 36.8 74 16 159/78 (105) 93 Room Air 12/28/17 23:25 Room Air 12/28/17 23:20 36.9 74 16 109/68 (82) 93 Room Air 12/28/17 20:30 131/77 (95) Notes Mental Status: alert / awake / arousable, participated in evaluation Pt Amnestic to Procedure: Yes Nausea / Vomiting: adequately controlled Pain: adequately controlled Airway Patency, RR, SpO2: stable & adequate BP & HR: stable & adequate Hydration State: stable & adequate Neuraxial Anesthesia: sensory block resolved Anesthetic Complications: no major complications apparent
[2017-12-29 08:25] VITALS: BP 159/79; PULSE 73; TEMP 36.7; O2SAT 94
[2017-12-29] MEDS: FERROUS GLUCONATE 324 MG TAB PO SCH ×3 (08:30→17:45)
[2017-12-29] MEDS: CeleBREX 200 MG CAP PO SCH ×2 (08:57→21:16)
[2017-12-29] MEDS: LORATADINE 10 MG TAB PO SCH (08:57)
[2017-12-29] MEDS: ASPIRIN 81 MG ECTAB PO SCH ×2 (08:58→21:16)
[2017-12-29] MEDS: POTASSIUM CHLORIDE 10 MEQ TABCR PO SCH (08:58)
[2017-12-29] MEDS: CHOLECALCIFEROL 1000 INTER.UNIT TAB PO SCH (08:59)
[2017-12-29] MEDS ORDERED: FLUOXETINE HCL 20 MG CAP PO SCH (09:00)
[2017-12-29] MEDS ORDERED: FLUOXETINE HCL 10 MG CAP PO SCH (09:00)
[2017-12-29] MEDS ORDERED: TERBINAFINE 250 MG TAB PO SCH (09:00)
[2017-12-29] MEDS ORDERED: PRZ/40 PO (09:50)
--- NOTE | 2017-12-29 09:59 | Hospitalist Progress Note ---
Hospitalist Progress Note Date of Service December 29, 2017. (Samantha Ingram ., HERMESC) Subjective Pt evaluation today including: conversation w/ patient, physical exam, chart review, lab review, review of inpatient medication list Pain: Well controlled PO Intake: Tolerating PO diet Voiding: no voiding problems The patient reports feeling well postop. She states she only has mild pain in her left knee which is being well controlled. She is tolerating a PO diet without any issues. She is voiding on her own without issue. She is passing gas and had a small bowel movement this morning. She states she has a dry, non- productive cough that is improving, as well as some nasal congestion which is also improving. She otherwise denies complaints. The patient denies fevers, chills, sweats, chest pain, palpitations, claudication, wheezing, shortness of breath, nausea, vomiting, abdominal pain, dysuria, hematuria, urinary retention , paralysis, weakness, numbness and tingling. Additional Comments: See HPI for pertinent positives and negatives. All other systems reviewed and negative. (Samantha Ingram ., JAYCEE-C) Objective Vital Signs Date Time Temp Pulse Resp B/P (MAP) Pulse Ox O2 Delivery O2 Flow Rate FiO2 12/29/17 08:25 36.7 73 18 159/79 (105) 94 Room Air 12/29/17 08:22 Room Air 12/29/17 04:10 36.8 74 16 159/78 (105) 93 Room Air 12/28/17 23:25 Room Air 12/28/17 23:20 36.9 74 16 109/68 (82) 93 Room Air 12/28/17 20:30 131/77 (95) 12/28/17 19:33 179/102 (127) 12/28/17 19:21 36.2 71 18 184/100 (128) 99 Nasal Cannula 2.0 12/28/17 18:24 65 18 151/74 (99) 98 Nasal Cannula 2.0 12/28/17 17:20 72 18 167/99 (121) 12/28/17 16:29 58 18 145/72 (96) 12/28/17 15:48 63 18 139/75 (96) 98 Nasal Cannula 2.0 12/28/17 15:10 Nasal Cannula 2.0 12/28/17 15:10 97 Nasal Cannula 2.0 12/28/17 15:10 36.7 64 18 128/76 (93) 97 Nasal Cannula 2.0 12/28/17 14:50 36.2 60 16 130/62 98 Nasal Cannula 2 12/28/17 14:40 36.2 60 16 121/66 98 Nasal Cannula 2 12/28/17 14:30 36.2 63 16 144/65 96 Nasal Cannula 2 12/28/17 14:20 60 16 141/71 95 Nasal Cannula 2 12/28/17 14:10 70 16 137/68 97 Nasal Cannula 2 12/28/17 14:00 58 16 147/68 97 Nasal Cannula 2 12/28/17 13:50 78 16 132/68 98 Nasal Cannula 2 12/28/17 13:40 76 16 139/68 100 Oxymask 10 12/28/17 13:30 75 16 133/66 100 Oxymask 10 12/28/17 13:22 36.5 78 16 117/64 100 Oxymask 10 (Samantha Ingram ., PA-C) Physical Exam Notes: General appearance: +Obese. Well-developed, well-nourished, no apparent distress Head: Normocephalic, atraumatic Eyes: Normal inspection, PERRL, EOMI ENT: Normal ENT inspection, hearing grossly normal, pharynx normal Neck: Supple, no JVD, trachea midline Respiratory/Chest: Lungs clear to auscultation, normal breath sounds, no respiratory distress Cardiovascular: Regular rate & rhythm, no gallop, no murmur Abdomen/GI: Normal bowel sounds, non-tender, soft Extremities/Musculoskeletal: +LLE wrapped in mirela bandage, hemovac in place. Normal inspection, no calf tenderness, no pedal edema Neurological/Psych: Alert, normal mood/affect, oriented x 3 Skin: Normal color, warm/dry, no rash (Samantha Ingram ., PA-C) Laboratory Results Last 24 Hours Test 12/29/17 05:48 12/29/17 07:55 White Blood Count 12.78 K/uL Red Blood Count 3.88 M/uL Hemoglobin 11.3 g/dL Hematocrit 34.8 % Mean Corpuscular Volume 89.7 fL Mean Corpuscular Hemoglobin 29.1 pg Mean Corpuscular Hemoglobin Concent 32.5 g/dl RDW Standard Deviation 44.7 fL RDW Coefficient of Variation 13.5 % Platelet Count 256 K/uL Mean Platelet Volume 8.8 fL Sodium Level 136 mmol/L Potassium Level 3.9 mmol/L Chloride Level 101 mmol/L Carbon Dioxide Level 29 mmol/L Anion Gap 6.0 mmol/L Blood Urea Nitrogen 19 mg/dl Creatinine 0.99 mg/dl Est Creatinine Clear Calc Drug Dose 47.2 ml/min Estimated GFR () 64.6 Estimated GFR (Non- 55.7 BUN/Creatinine Ratio 19.4 Random Glucose 171 mg/dl Calcium Level 8.7 mg/dl Bedside Glucose 139 mg/dl (Samantha Ingram ., PA-C) Assessment and Plan 77 y/o female with a history of HTN, HLD, asthma, anxiety, and GERD who presents s/p L TKA by Dr. Johnson on 12/28 for medical management. S/p L TKA--POD #1 - Surgical management, pain management, PT/OT, and DVT prophylaxis as per primary team - Encourage incentive spirometer - Bowel regimen ordered, had small BM today - Pain well controlled, AVSS HTN--stable - Resume HCTZ/lisinopril 12.5/20 mg PO qd as renal function is at baseline. IVF to be stopped at 1600 today - IV Hydralazine PRN HLD--stable - Continue Simvastatin 20 mg PO qd Anxiety - Continue Prozac 40 mg PO qd ?Underlying sleep apnea w/ obesity/snoring noted - Recommend outpatient sleep study GERD -Continue Protonix daily, resume Prilosec at discharge Code Status -Level I, FULL RESUSCITATION STATUS Pt. is stable from a medical standpoint, we will sign off. Clear for discharge as per primary team. (Samantha Ingram ., PA-C) Attending Attestation - Pt seen/examined, chart reviewed, care plan d/w JAYCEE Ingram. I agree w/ the nieves components of her documentation. Pt w/o complaints of dyspnea, cp, abd pain during the visit. Pt confirms she has snored most of her life; had sleep study but this was 20+ years ago. (normal then) VSS no fever gen - nad, obese neck - no JVD heart - RRR lungs - CTA b/l abd - soft, BS+ ext - left knee wrapped in large dressing A/P: 1. s/p left TKR 2. HTN - agree with resuming her normal BP meds 3. snoring - counseled her to ask her PCP for referral for sleep study after discharge 4. morbid obesity with BMI 38.9 5. mild acute blood loss anemia - repeat CBC am Damon England MD (Damon England MD)
[2017-12-29] MEDS: DOCUSATE SODIUM 100 MG CAP PO SCH ×2 (10:45→21:16)
[2017-12-29] MEDS: FLUOXETINE HCL 20 MG CAP PO SCH (10:45)
[2017-12-29] MEDS: LISINOPRIL/HCTZ 20/12.5MG TAB PO SCH (10:47)
[2017-12-29] MEDS: PANTOprazole SOD 40 MG TAB PO SCH (10:48)
[2017-12-29 12:24] VITALS: BP 188/93; PULSE 65; TEMP 36.4; O2SAT 95
[2017-12-29 15:33] VITALS: BP 162/80
[2017-12-29 19:22] VITALS: BP 178/77; PULSE 80; TEMP 36.7; O2SAT 95
[2017-12-29] MEDS: OXYCODONE HCL IR 5 MG TAB (IMMEDIATE RELEASE) PO PRN ×2 (19:29→23:48)
[2017-12-29] MEDS: MAGNESIUM CHLORIDE 64MG DELAYED REL TAB PO SCH (21:15)
[2017-12-29] MEDS: SIMVASTATIN 20 MG TAB PO SCH (21:16)
[2017-12-29] MEDS: SENNA 8.6 MG TAB PO SCH (21:16)
[2017-12-29] MEDS: TRAMADOL HCL 50 MG TAB PO PRN (22:04)
[2017-12-29 22:55] VITALS: BP 135/67; PULSE 79; TEMP 36.5; O2SAT 92
[2017-12-30] VITALS (7 sets, daily range): BP systolic 139–150; BP diastolic 79–100; PULSE 88–110; TEMP 36.5–36.6; O2SAT 84–98
[2017-12-30] MEDS: ACETAMINOPHEN 500 MG TAB PO SCH ×3 (05:50→21:45)
[2017-12-30 06:35] LABS: HEMATOCRIT 34.2 % (37-47); HEMOGLOBIN 10.8 g/dL (12.0-16.0); MEAN CELL VOLUME 91.7 fL (80-100); MEAN CORPUSCULAR HGB CONC 31.6 g/dl (32-36); MEAN PLATELET VOLUME 8.9 fL (7.4-10.4); PLATELET COUNT 245 K/uL (130-400); RED CELL DISTRIBUTION WIDTH SD 46.8 fL (36.4-46.3)
[2017-12-30 07:02] LABS: CALCIUM 8.6 mg/dl (8.5-10.1); CREATININE 0.78 mg/dl (0.60-1.20); POTASSIUM 3.9 mmol/L (3.5-5.1)
--- NOTE | 2017-12-30 07:06 | Orthopedic Progress Note ---
Orthopedic Progress Note Date of Service December 30, 2017. Subjective Post OP Day: 2 Reports: feeling well, pain controlled w PO medications, Denies: complaints, chest pain, SOB, nausea / vomiting, light headedness, calf pain Objective calves soft nontender, N/V intact, capillary refill less than 2 sec., dressing C /D/I (prevena ), A&O x3, toes mobile Date Time Temp Pulse Resp B/P (MAP) Pulse Ox O2 Delivery O2 Flow Rate FiO2 12/29/17 23:40 Room Air 12/29/17 22:55 36.5 79 18 135/67 (89) 92 Room Air 12/29/17 19:22 36.7 80 22 178/77 (110) 95 Room Air 12/29/17 15:33 162/80 (107) 12/29/17 15:30 Room Air 12/29/17 12:24 36.4 65 18 188/93 (124) 95 Room Air 12/29/17 08:25 36.7 73 18 159/79 (105) 94 Room Air 12/29/17 08:22 Room Air Laboratory Results 24 Hours: Test 12/30/17 06:03 Hematocrit 34.2 % Hemoglobin 10.8 g/dL Assessment & Plan Assessment: POD 2 s/p Left TKA Plan: PT/OT Planning for [facility] if approved. CM to arrange auth. Discharge Planning Discharge Planning: rehab hospital
--- NOTE | 2017-12-30 07:07 | Discharge Instructions ---
Discharge Instructions Date of Service December 30, 2017. Admission Reason for Admission: Left Knee Osteoarthritis Discharge Discharge Diagnosis / Problem: left total knee replacement Discharge Goals Goal(s): Decrease discomfort, Improve function, Increase independence Activity Recommendations Activity Level: Up Ad Macy Therapies: Physical Therapy, Weight Bearing Status Weightbearing Status: Left weightbearing (as tolerated) . Additional Information Patient informed of condition: Yes Advance Directives: No DNR: No Level of Care: Acute Rehab Communicable Disease: No Prognosis: Stable Instructions / Follow-Up Instructions / Follow-Up ACTIVITY RECOMMENDATIONS: SELF CARE INSTRUCTIONS AFTER TOTAL KNEE REPLACEMENT A. You may need to continue a physical therapy program after discharge from the hospital. There are several options available to you. Your doctor will assist you in selecting the best one for you. 1. An out-patient facility 2 to 3 times a week for therapy or home therapy. 2. Continue working on all exercises taught to you in the hospital. Your goals should be to increase bending of your knee to 90 degrees and beyond and to fully straighten your knee. B. You may progress at your own pace from walking with a walker or crutches to a cane; then to no assistive devices. C. Make walking a part of your daily routine. Be up as much as comfortable with rest periods throughout the day. Rest with leg elevation is very important. Use the ice wrap frequently for the first 3-4 weeks. D. There are no restrictions on activities. You may ride in a car, shop, participate in storage consultant and all social activities. E. Wear the long elastic stockings (DAIANA hose) 20 hours a day for 2 weeks after surgery. They can be removed several times a day for laundering and for a bath. F. You may shower, no tub baths until cleared by your doctor. SPECIAL CARE INSTRUCTIONS: VERY IMPORTANT TO READ AND REVIEW A. There are a few signs you need to watch for after you are home. Call [facility] if you notice any of the followin. Increased severe knee pain. Some pain is expected especially when you exercise. 2. Increased swelling in your leg or knee; pain or swelling of the calf muscle in either lower leg. 3. Any fluid drainage from the incision. 4. Shortness of breath or chest pain. B. Please call [facility] at if you have any concerns or questions about your operation or recovery. The doctor or his nurse will return your call promptly. C. You must take antibiotics before dental work, bladder, bowel or other surgery. Your doctor will provide you with a permanent care to carry describing this precaution. IMPORTANT: * REMEMBER TO TAKE ASPIRIN, 81 MG, TWICE DAILY FOR 4 WEEKS UNLESS OTHERWISE DIRECTED. THIS IS YOUR BLOOD THINNER. * HIGH RISK PATIENTS MAY BE PRESCRIBED A STRONGER BLOOD THINNER. THIS WILL BE PROVIDED AT DISCHARGE. * CALL IF INCREASED PAIN, REDNESS, DRAINAGE OR FEVER GREATER THAT 101. * WEAR DAIANA HOSE 20 HOURS PER DAY FOR 2 WEEKS. * Prevena- This is a large suction dressing covering your incision. This will help pull any excess drainage from the wound and allow your incision to heal properly. You may shower with this if you can keep the unit outside of the shower. If any bleeding or leakage is noted please call your doctor's office. This will remain on your incision for 7 days and then should be removed. This can be done yourself or by the home nursing staff if applicable. The entire unit is disposable once removed. Once removed, keep incision clean and dry. If redness or drainage is noted, please call your surgeon. FOLLOW UP VISIT: If appointment is not already scheduled: Please call [facility] to make a follow-up appointment for 2 weeks after your surgery at . Current Hospital Diet Patient's current hospital diet: Regular Diet Discharge Diet Recommended Diet: Regular Diet Procedures Procedures Performed: Left Total Knee Arthroplasty utilizing [employer] journey to patient match total knee arthroplasty size 2 femur to tibia 11 Tricia ethylene 29 round patella Pending Studies Studies pending at discharge: no Physician Orders On Transfer Dressing Changes: Prevena- This is a large suction dressing covering your incision. This will help pull any excess drainage from the wound and allow your incision to heal properly. You may shower with this if you can keep the unit outside of the shower. If any bleeding or leakage is noted please call your doctor's office. This will remain on your incision for 7 days and then should be removed. This can be done yourself or by the home nursing staff if applicable. The entire unit is disposable once removed. Once removed, keep incision clean and dry. If redness or drainage is noted, please call your surgeon. Laboratory Results Hemoglobin A1c Test 11/10/17 16:17 Range/Units Estimated Average Glucose 120 mg/dl Hemoglobin A1c 5.8 H 4.5-5.6 % Lipid Panel Test 11/10/17 16:17 Range/Units Triglycerides Level 92 0-150 mg/dl Cholesterol Level 203 H 0-200 mg/dl HDL Cholesterol 80 mg/dl Cholesterol/HDL Ratio 2.5 LDL Cholesterol, Calculated 105 mg/dl Medical Emergencies . Who to Call and When: Medical Emergencies: If at any time you feel your situation is an emergency, please call 911 immediately. . Non-Emergent Contact Non-Emergency issues call your: Primary Care Provider, Surgeon . . "Provider Documentation" section prepared by Narendra Dee. . Core Measure Problem Core Measures: None [place] Drug Monitoring Program Search Results: patient reviewed within database, no issues identified
[2017-12-30] MEDS: FLUOXETINE HCL 20 MG CAP PO SCH (09:10)
[2017-12-30] MEDS: CHOLECALCIFEROL 1000 INTER.UNIT TAB PO SCH (09:11)
[2017-12-30] MEDS: LISINOPRIL/HCTZ 20/12.5MG TAB PO SCH (09:11)
[2017-12-30] MEDS: POTASSIUM CHLORIDE 10 MEQ TABCR PO SCH (09:11)
[2017-12-30] MEDS: LORATADINE 10 MG TAB PO SCH (09:11)
[2017-12-30] MEDS: FERROUS GLUCONATE 324 MG TAB PO SCH ×3 (09:14→17:43)
[2017-12-30] MEDS: CeleBREX 200 MG CAP PO SCH ×2 (09:22→20:55)
[2017-12-30] MEDS: ASPIRIN 81 MG ECTAB PO SCH ×2 (09:22→20:55)
[2017-12-30] MEDS: DOCUSATE SODIUM 100 MG CAP PO SCH ×2 (09:23→20:55)
[2017-12-30] MEDS: PANTOprazole SOD 40 MG TAB PO SCH (11:08)
[2017-12-30] MEDS: TRAMADOL HCL 50 MG TAB PO PRN ×3 (11:08→23:48)
[2017-12-30] MEDS ORDERED: RXC5 PO (12:58)
[2017-12-30] MEDS ORDERED: SENN-61 PO (12:58)
[2017-12-30] MEDS ORDERED: CLC100 PO (12:58)
[2017-12-30] MEDS ORDERED: ASPI-320 PO (12:58)
[2017-12-30] MEDS ORDERED: ACET-24 PO (12:58)
[2017-12-30] MEDS ORDERED: CLB200 PO (12:58)
[2017-12-30] MEDS: SENNA 8.6 MG TAB PO SCH (20:55)
[2017-12-30] MEDS: MAGNESIUM CHLORIDE 64MG DELAYED REL TAB PO SCH (20:55)
[2017-12-30] MEDS: SIMVASTATIN 20 MG TAB PO SCH (20:55)
[2017-12-31 02:53] VITALS: BP 145/90; PULSE 96; O2SAT 94
[2017-12-31] MEDS: ACETAMINOPHEN 500 MG TAB PO SCH (05:49)
[2017-12-31 07:17] VITALS: BP 141/88; PULSE 100; TEMP 36.9; O2SAT 85
[2017-12-31 07:19] VITALS: O2SAT 95
[2017-12-31] MEDS: FERROUS GLUCONATE 324 MG TAB PO SCH (08:03)
[2017-12-31] MEDS: POTASSIUM CHLORIDE 10 MEQ TABCR PO SCH (08:32)
[2017-12-31] MEDS: FLUOXETINE HCL 20 MG CAP PO SCH (08:32)
[2017-12-31] MEDS: ASPIRIN 81 MG ECTAB PO SCH (08:33)
[2017-12-31] MEDS: CHOLECALCIFEROL 1000 INTER.UNIT TAB PO SCH (08:33)
[2017-12-31] MEDS: CeleBREX 200 MG CAP PO SCH (08:33)
[2017-12-31] MEDS: LISINOPRIL/HCTZ 20/12.5MG TAB PO SCH (08:33)
[2017-12-31] MEDS: LORATADINE 10 MG TAB PO SCH (08:33)
[2017-12-31] MEDS: DOCUSATE SODIUM 100 MG CAP PO SCH (08:33)
--- NOTE | 2017-12-31 10:29 | Orthopedic Progress Note ---
Orthopedic Progress Note Date of Service December 31, 2017. Subjective Post OP Day: 3 Reports: feeling well, complaints (pain off and on in the operative knee) Additional Notes: Pt states she was disappointed that she did not get in to [place]. We discussed how the insurances work and that we are now waiting on authorization for [facility]. Having pain off and on in the knee but tolerating well. No new complaints. Objective calves soft nontender, N/V intact, dressing C/D/I (Prevena intact), A&O x3 Date Time Temp Pulse Resp B/P (MAP) Pulse Ox O2 Delivery O2 Flow Rate FiO2 12/31/17 08:26 Room Air 12/31/17 07:19 95 Nasal Cannula 2.0 12/31/17 07:17 36.9 100 14 141/88 (105) 85 Room Air 12/31/17 02:53 96 145/90 (108) 94 Room Air 12/30/17 23:40 Room Air 12/30/17 23:01 36.6 99 16 150/79 (102) 92 Room Air 12/30/17 15:52 36.5 88 18 139/82 (101) 95 Room Air 12/30/17 15:45 Room Air 12/30/17 13:27 98 Nasal Cannula 2.0 12/30/17 12:00 92 Nasal Cannula 2.0 12/30/17 12:00 36.5 101 18 144/92 (109) 84 Room Air Assessment & Plan Assessment: POD 3 s/p Left TKA Plan: PT/OT Planning for [facility] Escalante if approved. CM to arrange auth. Hopeful for dc today Inhouse Planning Pain Management: Celebrex, Morphine, PO Tylenol, Oxy IR DVT Prophylaxis: TEDs, SCDs, ASA Discharge Planning Discharge Planning: [facility]dc facility
[2017-12-31 10:41] VITALS: BP 141/88; PULSE 100; TEMP 36.9; O2SAT 95
[2017-12-31] MEDS: PANTOprazole SOD 40 MG TAB PO SCH (10:45)
[2017-12-31] MEDS: TRAMADOL HCL 50 MG TAB PO PRN (10:46)
[2017-12-31] MEDS: OXYCODONE HCL IR 5 MG TAB (IMMEDIATE RELEASE) PO PRN (12:06)
[2017-12-31 14:52] VITALS: BP 125/81; PULSE 67; TEMP 36.6; O2SAT 100
== END 2017-12-31 13:00 | DRG 470 ==
LOC: C.ACU 08:46 → C.3E 13:33 → ENRESERV 14:02
PROVIDERS: ADMIT Orthopaedic Surgery; ATTEND Orthopaedic Surgery
PROC: 0SRD0J9 Replacement of Left Knee Joint with Synthetic Substitute, Cemented, Open Approach (ICD-10-PCS; principal; 2017-12-28 11:30)
DX: M17.12 Unilateral primary osteoarthritis, left knee (principal); D62 Acute posthemorrhagic anemia; I10 Essential (primary) hypertension; E78.00 Pure hypercholesterolemia, unspecified; J45.909 Unspecified asthma, uncomplicated; F41.9 Anxiety disorder, unspecified; G47.33 Obstructive sleep apnea (adult) (pediatric); E66.01 Morbid (severe) obesity due to excess calories; Z68.38 Body mass index [BMI] 38.0-38.9, adult; Z79.899 Other long term (current) drug therapy